=== PATIENT | male | born 1995 | race Hispanic/Latino ===

== ENCOUNTER 2017-07-11 10:28 | Inpatient (IN) | payer OTHER ==
[2017-07-11 11:16] VITALS: BMI 35.9
--- NOTE | 2017-07-11 11:42 | RAD ---
HISTORY: cough COMPARISON: No prior. FINDINGS: LUNGS: The lungs are well inflated. There is patchy airspace disease in the left lung. There is mild pulmonary venous congestion. PLEURA: No significant pleural effusion identified, no pneumothorax apparent. CARDIOVASCULAR: Normal. OSSEOUS STRUCTURES: No significant abnormalities. VISUALIZED UPPER ABDOMEN: Normal. OTHER FINDINGS: None. IMPRESSION: Suspect multifocal pneumonia in the left lung. Follow-up to resolution is advised.
[2017-07-11 11:43] LABS: ARTERIAL BLOOD GAS HCO3 27.9 mmol/L (21-28); ARTERIAL BLOOD GAS O2 SAT 97.8 % (95-98); ARTERIAL BLOOD GAS PCO2 44 mm/Hg (35-45); ARTERIAL BLOOD GAS PH 7.41 (7.35-7.45); ARTERIAL BLOOD GAS TCO2 29.3 mmol.L (22-28)
[2017-07-11 11:45] LABS: BASO # 0.01 K/mm3 (0.0-2.0); GRAN # 18.33 (1.4-6.5); GRAN % 81.2 % (50.0-68.0); HEMOGLOBIN 14.7 g/dL (14.0-18.0); LYMPH # 1.9 (1.2-3.4); LYMPH % 8.5 % (22.0-35.0); MEAN CELL VOLUME 82.3 fl (80.0-105.0); MEAN CORPUSCULAR HEMOGLOBIN 29.2 pg (25.0-35.0); MEAN CORPUSCULAR HGB CONC 35.4 g/dl (31.0-37.0); MEAN PLATELET VOLUME 9.8 fl (7.0-11.0); MONO # 2.3 (0.1-0.6); MONO % 10.3 % (1.0-6.0); RBC 5.04 10^6/uL (3.5-6.1); RED CELL DISTRIBUTION WIDTH 12.6 % (11.5-14.5); WHITE BLOOD COUNT 22.6 10^3/ul (4.5-11.0)
[2017-07-11 11:56] LABS: ALB/GLOB RATIO 1.7 (1.1-1.8); ALBUMIN 4.1 g/dL (3.0-4.8); ALT/SGPT 39 U/L (7-56); AST/SGOT 28 U/L (17-59); BLOOD UREA NITROGEN 15 mg/dL (7-21); CALCIUM 8.8 mg/dL (8.4-10.5); GFR AFRICAN-AMERICAN > 60; GFR NON-AFRICAN AMERICAN > 60; PROTHROMBIN TIME 13.3 SECONDS (9.4-12.5)
[2017-07-11 11:57] LABS: INR 1.15 (0.93-1.08)
[2017-07-11] MEDS: Sodium Chloride 0.9% 1,000 ML IV SCH (11:58)
[2017-07-11] MEDS ORDERED: Piperacill/Tazo 4.5gm in NS 4.5 GM/100 ML BAG IVPB STA (12:01)
[2017-07-11] MEDS ORDERED: Albuterol-Ipratrop 3 mg / 0.5 (3 ml) UD IH STA (12:01)
[2017-07-11] MEDS ORDERED: Vancomycin 1gm in NS 250ml 1 GM/250 ML BAG IVPB STA (12:02)
[2017-07-11 12:03] LABS: ACETAMINOPHEN < 10.0 ug/ml (10.0-20.0); SALICYLATE < 1 mg/dL (2.0-20.0)
[2017-07-11] MEDS: Albuterol-Ipratrop 3 mg / 0.5 (3 ml) UD IH SCH ×2 (12:15→12:36)
[2017-07-11] MEDS ORDERED: Iohexol 350 MG/100 ML VIAL ONE (13:47)
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
[2017-07-11] MEDS ORDERED: Morphine 4 mg/ml ISec IVP PRN (14:17)
[2017-07-11] MEDS ORDERED: Albuterol-Ipratrop 3 mg / 0.5 (3 ml) UD IH PRN (15:07)
--- NOTE | 2017-07-11 15:44 | CT ---
PROCEDURE: CT Chest with contrast HISTORY: hemoptysis COMPARISON: None. TECHNIQUE: Contiguous axial images were obtained through the chest with intravenous contrast enhancement. Sagittal and coronal reconstructions were performed. IV contrast: 100 cc of Omni 350 Radiation dose (DLP): 839 mGy-cm. This CT exam was performed using one or more of the following dose reduction techniques: Automated exposure control, adjustment of the mA and/or kV according to patient size, and/or use of iterative reconstruction technique. FINDINGS: LUNGS: There is a diffuse patchy alveolar infiltrates seen predominantly in the upper lobes bilaterally. There is also involvement of the left lower lobe. The infiltrate does not extend to the periphery of the lungs. Although the finding could represent pneumonia considering the history of hemoptysis this could represent diffuse alveolar hemorrhage. This can be seen in rare conditions such as Beckie's granulomatosis, Churg-Matthew syndrome, Goodpasture's syndrome and microscopic polyangitis. MEDIASTINUM: Unremarkable thoracic aorta. No aneurysm or dissection. Normal sized heart. Main pulmonary artery unremarkable. No vascular congestion. No lymphadenopathy. PLEURA: No pleural fluid. No pneumothorax. BONES: No fracture. No destructive lesion. UPPER ABDOMEN: Grossly unremarkable. OTHER FINDINGS: None. IMPRESSION: Diffuse patchy alveolar infiltrate which does not extend to the periphery of the lungs. Although this could represent pneumonia given the history of hemoptysis this most likely represents diffuse alveolar hemorrhage. This can be seen in rare conditions such as Beckie's granulomatosis, Churg-Matthew syndrome, Goodpasture's syndrome and microscopic polyangitis. The relationship to the history of opioid overdose is uncertain.
[2017-07-11] MEDS ORDERED: Azithromycin 500MG/NS 250ml 500 MG/250 ML BAG IVPB STA (15:47)
--- NOTE | 2017-07-11 16:08 | ED PDOC ---
Arrival/HPI - General Chief Complaint: Substance Abuse Time Seen by Provider: 07/11/17 11:02 Historian: Patient, Family, EMS - History of Present Illness Narrative History of Present Illness (Text): Patient is a 21 yo male presents to the Emergency Department via ambulance for history of "overdose". History is supplemented by ambulance personnel and mother at bedside. As per ambulance crew, patient was found unresponsive and "blue" prior to arrival by mother. They describe that when they reached the individual he had "slow respirations and was unresponsive". They report that he was given "two sprays of intranasal Narcan" and there was immediate improvement in respiratory status and patient "woke up." He was subsequently transported to the Emergency Department. When I examine the patient at bedside, he states that "last night" he "took a xanax" and "used a bag of heroin". He states that he had NOT been sick or ill prior to last night. He reports that he was "moving some things and I must have passed out" and reports that he "woke up around 2 in the morning and I must have vomited some blood because it was in my mouth and I had to clean it off me". He states he "went to bed" and his father "woke me up around 5 in the morning to see if I was going to work." Mother states that she saw patient "around 6" and he was complaining of coughing/spitting up blood, and that she would take him to be evaluated later in the morning. She subsequently states she "found him blue and not responding prior to arrival to the Emergency Department". Patient admits that since he saw his mom at 6 in the morning "I used another bag of heroin". He currently complains of cough and congestion. He denies headache or trauma. He denies abdominal pain. He denies bloody or dark urine or stool. He denies chest pain or pleuritic chest discomfort. He denies suicidal ideation. He states that he "got this batch of heroin from [place]" and "I usually don't get it from there". Time/Duration: Prior to Arrival Past Medical History - Infectious Disease Hx of Infectious Diseases: None - Tetanus Immunization Tetanus Immunization: Up to Date - Past Medical History Past Medical History: No Previous - Cardiac Hx Cardiac Disorders: No - Pulmonary Hx Respiratory Disorders: No - Neurological Hx Neurological Disorder: No - HEENT Hx HEENT Disorder: No - Renal Hx Renal Disorder: No - Endocrine/Metabolic Hx Endocrine Disorders: No - Hematological/Oncological Hx Blood Disorders: No - Integumentary Hx Dermatological Disorder: No - Musculoskeletal/Rheumatological Hx Musculoskeletal Disorders: No - Gastrointestinal Hx Gastrointestinal Disorders: No - Genitourinary/Gynecological Hx Genitourinary Disorders: No - Psychiatric Hx Psychophysiologic Disorder: No Hx Substance Use: Yes - Past Surgical History Past Surgical History: No Previous - Surgical History Hx Tonsillectomy: Yes - Anesthesia Hx Anesthesia: Yes Hx Anesthesia Reactions: No Hx Malignant Hyperthermia: No - Suicidal Assessment Feels Threatened In Home Enviroment: No Family/Social History Family/Social History: Unknown Family HX Smoking Status: Heavy Smoker > 10 Cigarettes Daily Hx Alcohol Use: No Hx Substance Use: Yes Substance used: heroine Hx Substance Use Treatment: No Allergies/Home Meds Allergies/Adverse Reactions: Allergies No Known Allergies Allergy (Verified 07/11/17 13:53) Home Medications: Home Meds Medication Instructions Recorded Confirmed No Known Home Med 07/11/17 07/11/17 Review of Systems - Review of Systems Constitutional: Fatigue Eyes: absent: Vision Changes, Eye Pain ENT: absent: Hearing Changes Respiratory: SOB, Cough, Sputum, Wheezing Cardiovascular: absent: Chest Pain, Palpitations, Edema, Calf Pain Gastrointestinal: Other ("spitting up blood"). absent: Abdominal Pain, Diarrhea , Nausea Genitourinary Male: absent: Dysuria, Hematuria Musculoskeletal: absent: Back Pain Skin: absent: Rash Neurological: absent: Headache, Dizziness, Focal Weakness Endocrine: absent: Polyuria Hemo/Lymphatic: absent: Easy Bleeding Psychiatric: absent: Suicidal Ideation Physical Exam Vital Signs Reviewed: Yes Vital Signs Temp Pulse Resp BP Pulse Ox 07/11/17 14:28 99.1 F 98 H 20 122/78 96 07/11/17 14:24 98.9 F 07/11/17 13:30 90 20 123/62 95 07/11/17 12:57 97 H 18 133/71 96 07/11/17 10:43 99.5 F 97 H 22 129/72 93 L Temperature: Afebrile Blood Pressure: Normal Pulse: Regular Appearance: Positive for: Comfortable Pain Distress: Mild Mental Status: Positive for: Alert and Oriented X 3 - Systems Exam Head: Present: Atraumatic Pupils: Present: Other (dilated, reactive, equal pupils, visual acuity and visual alfaro intact) Extroacular Muscles: Present: EOMI. No: Gaze Palsy, Entrapment Conjunctiva: Present: Injected. No: Icteric Ears: No: Erythema Mouth: Present: Moist Mucous Membranes Pharnyx: Present: Other (dried blood, dark noted around lips, with no tongue or lip lesions noted, no pharyngeal erythema or exudate). No: ERYTHEMA, EXUDATE, Peritonsilar Swelling, Uvular Deviation, Muffled/Hoarse Voice, Strider Nose (Internal): Present: No Active Bleeding. No: Epistaxis Neck: Present: Normal Range of Motion, Trachea Midline. No: Meningeal Signs, MIDLINE TENDERNESS Respiratory/Chest: Present: Rhonchi, Tachypneic. No: Respiratory Distress, Accessory Muscle Use, Retracting Cardiovascular: Present: Regular Rate and Rhythm, Murmurs Abdomen: No: Tenderness, Distention, Peritoneal Signs, Rebound, Guarding Rectal: Present: Other (no gross bleeding or melena). No: Gross Blood Back: No: Midline Tenderness, Pain with Leg Raise Upper Extremity: No: Cyanosis Lower Extremity: Present: NORMAL PULSES, Other (no calf pain or edema). No: Edema, CALF TENDERNESS, Tenderness, Swelling Neurological: Present: Other (no slurred speech, awake, alert and oriented and answering questions, no meningeal signs, no focal motor or sensory deficits, no facial droop) Skin: Present: Other (flushed) Psychiatric: Present: Alert, Normal Insight. No: Suicidal Ideation, Homicidal Ideation, Lethargic Medical Decision Making ED Course and Treatment: Patient was evaluated with mom at bedside. History obtained from patient, mother and prehospital personnel. Patient admits to using heroin "last night" as well as a SECOND time earlier this AM. As per medics, patient had immediate response to Narcan given prior to arrival. Patient states that he had "spit up blood" and he "woke up with blood around me " at 2 am. On current exam, there is dried blood noted in oropharynx although on my initial exam no active hemoptysis although history is concerning for intermittent episodes. On initial exam in ED, his oxygen saturations are 92-94% on 2 liters nasal cannula. Some mild rhonchi are noted in both lung alfaro but patient in ED is not labored or in respiratory distress. Chest xray reading by radiologist was reviewed with patient and mother. I am concerned for multifocal pneumonia, aspiration given hx of overdose of heroin, although differential also includes ARDS, pulmonary edema, pulmonary hemorrhage. We closely monitored patient's respiratory status and neurologic status, reviewed ABG and correlated with his respiratory status in ED. He remains alert, conversive throughout ED stay. He requested to smoke a cigarrete I have advised him he is not able to given high risk of abnormal chest xray and pulmonary disease noted. Due to history of hemoptysis, abnormal chest xray, risk of aspiration, risk of hemorrhage, risk of ARDS given heroin overdose, ICU natural gas technician consulted Dr. Jamari Gonzalez. I reviewed history, abnormal chest xray and current exam with ICU team. I feel patient is at risk for progression of respiratory distress given chest xray findings and will admit to Intensive Care Unit. Family and patient updated with treatment plan. Leukocytosis noted, although afebrile and initial lactate and blood pressure stable. Cultures ordered and broad spectrum antibiotics ordered for risk of pneumonia, although ARDS cannot be excluded. Patient exhibits no distress on nasal cannula with serial exams, although will admit to ICU for close monitoring. Directly communicated with natural gas technician and treatment care handed off to ICU team , including serial exams and consultations. Patient's PMD is Dr. Melgar, Dr. López is covering will accept patient to her service. Care of this patient turned over directly to ICU team at 13:30. Reassessment Condition: Re-examined - Critical Care Critical Care Minutes: 30 minutes - Lab Interpretations Lab Results: 07/11/17 11:20 07/11/17 11:20 Lab Results 07/11/17 11:35: pCO2 44, pO2 72.0 L, HCO3 27.9, ABG pH 7.41, ABG Total CO2 29.3 H, ABG O2 Saturation 97.8, ABG Base Excess 2.7, ABG Potassium 3.8, Glucose 109, Lactate 0.7, FiO2 32.0, Sodium 135.0, Chloride 105.0, Arterial Blood Potassium 3.8 07/11/17 11:20: PT 13.3 H, INR 1.15 H, APTT 28.0 07/11/17 11:20: Alcohol, Quantitative < 10 07/11/17 11:20: Salicylates < 1 L, Acetaminophen < 10.0 L 07/11/17 11:20: Sodium 138, Potassium 4.0, Chloride 101, Carbon Dioxide 28, Anion Gap 13, BUN 15, Creatinine 0.7 L, Est GFR ( Amer) > 60, Est GFR ( Non-Af Amer) > 60, Random Glucose 109, Calcium 8.8, Magnesium 1.9, Total Bilirubin 0.6, AST 28, ALT 39, Alkaline Phosphatase 35 L, Total Creatine Kinase 111, Total Protein 6.4, Albumin 4.1, Globulin 2.4, Albumin/Globulin Ratio 1.7 07/11/17 11:20: WBC 22.6 H, RBC 5.04, Hgb 14.7, Hct 41.5 L, MCV 82.3, MCH 29.2, MCHC 35.4, RDW 12.6, Plt Count 205, MPV 9.8, Gran % 81.2 H, Lymph % (Auto) 8.5 L , [place] % (Auto) 10.3 H, Eos % (Auto) 0.0 L, Baso % (Auto) 0.0, Gran # 18.33 H, Lymph # (Auto) 1.9, [place] # (Auto) 2.3 H, Eos # (Auto) 0.0, Baso # (Auto) 0.01 I have reviewed the lab results: Yes - RAD Interpretation Radiology Orders: 07/11/17 11:08 CHEST PORTABLE [RAD] Stat Shoe Polisher: Radiologist - EKG Interpretation EKG Interpretation (Text): 07/11/17 18:34 EKG at 11:26 normal sinus rhythm with fusion complexes, incomplete right bundle branch block Interpreted by ED Physician: Yes Type: 12 lead EKG - Medication Orders Current Medication Orders: Albuterol/Ipratropium (Duoneb 3 Mg/0.5 Mg (3 Ml) Ud) 3 ml IH [id number] PRN PRN Reason: Shortness of Breath Sodium Chloride (Sodium Chloride 0.9%) 1,000 mls @ 100 mls/hr IV .Q10H [facility] Last Admin: 07/11/17 11:58 Dose: 100 mls/hr eMAR Start Stop Document 07/11/17 11:58 SZA (Rec: 07/11/17 11:58 [id number]) Intravenous Solution Start Date 07/11/17 Start Time 11:58 Ceftriaxone Sodium (Rocephin 1 Gram Ivpb) 1 gm in 100 mls @ 100 mls/hr IVPB DAILY [facility] PRN Reason: Protocol Azithromycin (Zithromax 500mg In Ns) 500 mg in 250 mls @ 167 mls/hr IVPB DAILY [facility] PRN Reason: Protocol Morphine Sulfate (Morphine) 2 mg IVP Q4H PRN PRN Reason: Other Nicotine (Nicoderm Cq) [address] [facility] Last Admin: 07/11/17 15:45 Dose: 1 patch MAR Transdermal Patch Site Document 07/11/17 15:45 [facility] (Rec: 07/11/17 15:46 [facility] [id number]) Transdermal Patch Site Transdermal Patch Site Left Lower Back Pantoprazole Sodium (Protonix Inj) [address] [facility] Last Admin: 07/11/17 14:39 Dose: 40 mg IVP Administration Document 07/11/17 14:39 [facility] (Rec: 07/11/17 14:39 [email or web address] [id number]) Charges for Administration # of IVP Administrations 1 Discontinued Medications Albuterol/Ipratropium (Duoneb 3 Mg/0.5 Mg (3 Ml) Ud) 3 ml IH STAT STA Stop: 07/11/17 12:02 Last Admin: 07/11/17 12:35 Dose: 3 ml Albuterol/Ipratropium (Duoneb 3 Mg/0.5 Mg (3 Ml) Ud) 3 ml IH Q15M [facility] Stop: 07/11/17 12:46 Last Admin: 07/11/17 12:36 Dose: 3 ml Piperacillin Sod/Tazobactam Sod (Zosyn 4.5 Gm In Ns 100ml) 4.5 gm in 100 mls @ 200 mls/hr IVPB STAT STA PRN Reason: Protocol Stop: 07/11/17 12:30 Last Admin: 07/11/17 12:34 Dose: 200 mls/hr eMAR Start Stop Document 07/11/17 12:34 [facility] (Rec: 07/11/17 12:35 [id number] [id number]) Intravenous Solution Start Date 07/11/17 Start Time 12:35 End Date 07/11/17 End time 13:05 Total Infusion Time 30 Vancomycin HCl (Vancomycin 1gm) 1 gm in 250 mls @ 167 mls/hr IVPB STAT STA PRN Reason: Protocol Stop: 07/11/17 13:31 Last Admin: 07/11/17 13:15 Dose: 167 mls/hr eMAR Start Stop Document 07/11/17 13:15 [facility]ZA (Rec: 07/11/17 13:15 [id number]) Intravenous Solution Start Date 07/11/17 Start Time 13:15 End Date 07/11/17 End time 14:45 Total Infusion Time 90 Azithromycin (Zithromax 500mg In Ns) 500 mg in 250 mls @ 167 mls/hr IVPB STAT STA PRN Reason: Protocol Stop: 07/11/17 17:16 Last Admin: 07/11/17 16:16 Dose: 167 mls/hr eMAR Start Stop Document 07/11/17 16:16 [facility] (Rec: 07/11/17 16:17 [facility] [id number]) Intravenous Solution Start Date 07/11/17 Start Time 16:16 End Date 07/11/17 End time 18:16 Total Infusion Time 120 Disposition/Present on Arrival - Present on Arrival Any Indicators Present on Arrival: No History of DVT/PE: No History of Uncontrolled Diabetes: No Urinary Catheter: No History of Decub. Ulcer: No History Surgical Site Infection Following: None - Disposition Have Diagnosis and Disposition been Completed?: Yes Diagnosis: Heroin overdose, Hemoptysis, Leukocytosis, Pneumonia, Abnormal chest xray Disposition: HOSPITALIZED Disposition Time: 13:30 Patient Plan: Admission, ICU Condition: CRITICAL
--- NOTE | 2017-07-11 18:34 | CARD ---
APPROVED REPORT EKG Measurement Heart [id number] <Conclusion> Sinus rhythm with fusion complexes Incomplete right bundle branch block Borderline ECG
[2017-07-11] MEDS ORDERED: Pneumococcal 23-Valent Vaccine IM ONE (18:39)
[2017-07-11 19:52] LABS: HEMOGLOBIN 14.2 g/dL (14.0-18.0)
[2017-07-12] MEDS: Sodium Chloride 0.9% 1,000 ML IV SCH ×2 (00:31→11:07)
[2017-07-12 01:50] LABS: BARBITURATES, UR NEGATIVE (NEGATIVE); BENZODIAZEPINES, UR POSITIVE (NEGATIVE); OPIATES, UR POSITIVE (NEGATIVE); PHENCYCLIDINE, UR NEGATIVE (NEGATIVE)
[2017-07-12] MEDS ORDERED: DiphenhydrAMINE 50 mg/ml Inj IVP ONE ×2 (01:57→02:16)
[2017-07-12] MEDS ORDERED: DiphenhydrAMINE 50 mg/ml Inj ONE (02:00)
--- NOTE | 2017-07-12 04:06 | CP.PCM.PN ---
Subjective - Date & Time of Evaluation Date of Evaluation: 07/12/17 Time of Evaluation: 04:02 - Subjective Subjective: Seen at bedside. Because he was restless. Asked for medication for withdrawal. Has no other complaints. Medical record was reviewed. This 21 year old male was admitted with heroine and xanax overdose. Has history of drug abuse, obesity, gastritis, endoscopy 2 years ago. Objective - Vital Signs/Intake and Output Vital Signs (last 24 hours): Temp Pulse Resp BP Pulse Ox 98.9 F 100 H 27 H 125/104 H 98 07/12/17 00:45 07/12/17 02:30 07/12/17 01:20 07/12/17 02:30 07/12/17 01:20 Intake and Output: 07/11/17 07/12/17 18:59 06:59 Intake Total 400 Balance 400 - Medications Medications: Current Medications Albuterol/Ipratropium (Duoneb 3 Mg/0.5 Mg (3 Ml) Ud) 3 ml IH [id number] PRN PRN Reason: Shortness of Breath Sodium Chloride (Sodium Chloride 0.9%) 1,000 mls @ 100 mls/hr IV .Q10H [facility] Last Admin: 07/12/17 00:31 Dose: 100 mls/hr Ceftriaxone Sodium (Rocephin 1 Gram Ivpb) 1 gm in 100 mls @ 100 mls/hr IVPB DAILY [facility] PRN Reason: Protocol Azithromycin (Zithromax 500mg In Ns) 500 mg in 250 mls @ 167 mls/hr IVPB DAILY [facility] PRN Reason: Protocol Morphine Sulfate (Morphine) 2 mg IVP Q4H PRN PRN Reason: Other Nicotine (Nicoderm Cq) 1 patch TD DAILY [facility] Last Admin: 07/11/17 15:45 Dose: 1 patch Pantoprazole Sodium (Protonix Inj) 40 mg IVP Q12 [facility] Last Admin: 07/11/17 21:00 Dose: 40 mg - Labs Labs: 07/11/17 19:45 PT 13.3 SECONDS (9.4-12.5) H 07/11/17 11:20 INR 1.15 (0.93-1.08) H 07/11/17 11:20 APTT 28.0 Seconds (25.1-36.5) 07/11/17 11:20 - Constitutional Appears: Well, No Acute Distress - Head Exam Head Exam: ATRAUMATIC, NORMAL INSPECTION, NORMOCEPHALIC Additional comments: Restless. - Eye Exam Eye Exam: Normal appearance - ENT Exam ENT Exam: Normal External Ear Exam - Neck Exam Neck Exam: Normal Inspection - Respiratory Exam Respiratory Exam: NORMAL BREATHING PATTERN - Cardiovascular Exam Cardiovascular Exam: absent: JVD - GI/Abdominal Exam GI & Abdominal Exam: absent: Distended - Rectal Exam Rectal Exam: Deferred - Exam Additional comments: Deferred. - Extremities Exam Extremities Exam: Normal Inspection - Back Exam Back Exam: NORMAL INSPECTION - Neurological Exam Neurological Exam: Altered - Psychiatric Exam Psychiatric exam: Agitated - Skin Skin Exam: Normal Color Assessment and Plan - Assessment and Plan (Free Text) Assessment: Restlessness. Drug overdose. Obesity. Gastritis. Leukocytosis. Plan: Clonidine 0.3 mg PO x 1. Benadryl 50 mg PO x 1. Vistaril 100 mg PO x1.
[2017-07-12 07:11] LABS: EOS % 0.1 % (1.5-5.0); GRAN # 10.74 (1.4-6.5); GRAN % 89.4 % (50.0-68.0); HEMOGLOBIN 14.4 g/dL (14.0-18.0); LYMPH # 1.1 (1.2-3.4); LYMPH % 9.2 % (22.0-35.0); MEAN CELL VOLUME 82.2 fl (80.0-105.0); MEAN CORPUSCULAR HEMOGLOBIN 28.8 pg (25.0-35.0); MEAN PLATELET VOLUME 10.6 fl (7.0-11.0); MONO # 0.2 (0.1-0.6); MONO % 1.3 % (1.0-6.0); RED CELL DISTRIBUTION WIDTH 12.5 % (11.5-14.5)
[2017-07-12 07:31] LABS: ALB/GLOB RATIO 1.6 (1.1-1.8); ALBUMIN 4.1 g/dL (3.0-4.8); ALT/SGPT 34 U/L (7-56); AST/SGOT 21 U/L (17-59); BLOOD UREA NITROGEN 13 mg/dL (7-21); CALCIUM 9.5 mg/dL (8.4-10.5); GFR AFRICAN-AMERICAN > 60; GFR NON-AFRICAN AMERICAN > 60
[2017-07-12 07:34] LABS: B-TYPE NATRIURETIC PEPTIDE 342 pg/mL (0-450)
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
[2017-07-12] MEDS ORDERED: Potassium & Sodium Phosphate PO STA (08:35)
[2017-07-12] MEDS ORDERED: Azithromycin 500MG/NS 250ml 500 MG/250 ML BAG IVPB SCH (10:00)
[2017-07-12] MEDS ORDERED: cefTRIAXone 1 gm 1 GM/100 ML BAG IVPB SCH (10:00)
--- NOTE | 2017-07-12 10:46 | PN ---
DATE: 07/12/2017 SUBJECTIVE: The patient is seen and examined at bedside. He appears to be comfortable. He had only a few streaks of old blood in his sputum overnight, just 2 times. He is not coughing up large quantity of bloody anymore. CAT scan of the chest revealed ground-glass nodules and some opacities, which may represent fluid in the alveoli, whether it is blood or not hard to say. There is no cavitary lesion or significant bronchiectasis identified. The ground-glass opacities and nodules are bilateral with right slightly more than left. The patient's breathing substantially improved subjectively. He however, complaining on increased jittery feeling and feeling cold. PHYSICAL EXAMINATION: VITAL SIGNS: Blood pressure 130/74, respiratory rate 20, oxygen saturation 91% on room air, heart rate 97. GENERAL: The patient is comfortable. ENT: Head and neck atraumatic. LUNGS: Clear to auscultation bilaterally. HEART: Regular rate and rhythm. S1, S2 normal. ABDOMEN: Soft, nontender, nondistended. MUSCULOSKELETAL: No C/C/E. NEURO: The patient moves all extremities spontaneously. SKIN: Moist. PSYCH: The patient is alert, awake, but somnolent. Of note, the patient received 20 mg of methadone x1 to prevent withdrawal. LABORATORY DATA: WBC 12, down from 22.6; hemoglobin 14.4; platelet count 195. Sodium 142, potassium 3.6, chloride 108, carbon dioxide 21, BUN 13, creatinine 0.6, glucose 120, AST 21, ALT 34. The patient has low eosinophil count. MEDICATIONS: DuoNeb p.r.n., Benadryl, methadone x1, morphine p.r.n., nicotine patch, Protonix, Zosyn and azithromycin. ProBNP 342. CAT scan of the chest revealed diffuse patchy alveolar infiltrate, which does not extent to the periphery of the lung. Also, this could represent pneumonia given the history of hemoptysis. This most likely represents diffuse alveolar hemorrhage. Chest x-ray revealed bilateral reticular nodular opacities, left more than right. ASSESSMENT AND PLAN: This is a 21-year-old gentleman, who presented with hemoptysis after using heroin (it is unclear whether he was snorting or using it IV) and was admitted to Intensive Care Unit for concern for his ability to protect airways and borderline hypoxemia. CAT scan showed bilateral ground-glass nodules and opacities, which may or may not represent diffuse alveolar hemorrhage, as acute hypersensitivity pneumonitis may present with similar radiographic picture and hemoptysis could have represented simply aspirated epistaxis. The patient received 1 dose of Solu-Medrol with almost complete resolution of the hemoptysis afterward. The patient's respiratory status substantially improved. It appears that the patient starts to show some symptoms of withdrawal from opiates. Methadone 20 mg p.o. was given and the patient reports that he is feeling better. He hemodynamically appears to be better. I doubt that hemoptysis represents signs of autoimmune vasculitis as patient does not have renal insufficiency, sinusitis , CHF, encephalopathy or skin rash. We will, however, order echocardiogram to elaborate on that. I will continue to target euvolemia, euglycemia, normothermia and oxygen saturation more than 90%. We will continue with deep venous thrombosis and gastrointestinal prophylaxis. ccm time 40 min Rm Mills MD ADÁN
--- NOTE | 2017-07-12 10:55 | CP.PCM.CON ---
History of Present Illness - History of Present Illness History of Present Illness: 21 year old male with PMH of heroin abuse (sniffs), history of gastritis, obesity with BMI 36 came in to [facility] complaining of cough and vomiting up blood since yesterday. Apparently the patient had been going to rehab for more than a year now but went back to using heroin after he broke up with his girlfriend. He denies IV drug use. He had shortness of breath when he came in, denies fever or chills, no headache or dizziness, no sore throat, no rhinorrhea, no abdominal pain, no diarrhea, no dysuria. He continues to have blood in his phlegm. Before he went to the rehab center, he apparently had a PPD done which was negative according to the patient. CXR and CT chest was done which is suggestive of diffuse alveolar hemorrhage. The patient was also found to have leukocytosis and Infectious diseases consult is requested to further evaluate and manage. Review of Systems - Review of Systems All systems: reviewed and no additional remarkable complaints except (as per HPI ) Past Patient History - Infectious Disease Hx of Infectious Diseases: None - Tetanus Immunizations Tetanus Immunization: Up to Date - Past Social History Smoking Status: Heavy Smoker > 10 Cigarettes Daily - CARDIAC Hx Cardiac Disorders: No - PULMONARY Hx Respiratory Disorders: No - NEUROLOGICAL Hx Neurological Disorder: No - HEENT Hx HEENT Problems: No - RENAL Hx Chronic Kidney Disease: No - ENDOCRINE/METABOLIC Hx Endocrine Disorders: No - HEMATOLOGICAL/ONCOLOGICAL Hx Blood Disorders: No - INTEGUMENTARY Hx Dermatological Problems: No - MUSCULOSKELETAL/RHEUMATOLOGICAL Hx Musculoskeletal Disorders: No - GASTROINTESTINAL Hx Gastrointestinal Disorders: No - GENITOURINARY/GYNECOLOGICAL Hx Genitourinary Disorders: No - PSYCHIATRIC Hx Psychophysiologic Disorder: No Hx Substance Use: Yes - SURGICAL HISTORY Hx Tonsillectomy: Yes - ANESTHESIA Hx Anesthesia: Yes Hx Anesthesia Reactions: No Hx Malignant Hyperthermia: No Meds Allergies/Adverse Reactions: Allergies Allergy/AdvReac Type Severity Reaction Status Date / Time No Known Allergies Allergy Verified 07/11/17 13:53 - Medications Medications: Current Medications Albuterol/Ipratropium (Duoneb 3 Mg/0.5 Mg (3 Ml) Ud) 3 ml IH [id number] PRN PRN Reason: Shortness of Breath Sodium Chloride (Sodium Chloride 0.9%) 1,000 mls @ 100 mls/hr IV .Q10H [facility] Last Admin: 07/11/17 11:58 Dose: 100 mls/hr Ceftriaxone Sodium (Rocephin 1 Gram Ivpb) 1 gm in 100 mls @ 100 mls/hr IVPB DAILY [facility] PRN Reason: Protocol Azithromycin (Zithromax 500mg In Ns) 500 mg in 250 mls @ 167 mls/hr IVPB DAILY [facility] PRN Reason: Protocol Azithromycin (Zithromax 500mg In Ns) 500 mg in 250 mls @ 167 mls/hr IVPB STAT [facility] PRN Reason: Protocol Stop: 07/11/17 17:16 Last Admin: 07/11/17 16:16 Dose: 167 mls/hr Morphine Sulfate (Morphine) 2 mg IVP Q4H PRN PRN Reason: Other Nicotine (Nicoderm Cq) 1 patch TD DAILY [facility] Last Admin: 07/11/17 15:45 Dose: 1 patch Pantoprazole Sodium (Protonix Inj) 40 mg IVP Q12 [facility] Last Admin: 07/11/17 14:39 Dose: 40 mg Physical Exam - Constitutional Appears: Other (ill-appearing) - Head Exam Head Exam: NORMAL INSPECTION - Neck Exam Neck exam: Negative for: Meningismus - Respiratory Exam Respiratory Exam: Rales (scattered, diffuse) - Cardiovascular Exam Cardiovascular Exam: +S1, +S2 - GI/Abdominal Exam GI & Abdominal Exam: Soft. absent: Tenderness Results - Vital Signs Recent Vital Signs: Last Vital Signs Temp 99.1 F 07/11/17 14:28 Pulse 98 H 07/11/17 14:28 Resp 20 07/11/17 14:28 BP 122/78 07/11/17 14:28 Pulse Ox 96 07/11/17 14:28 - Labs Result Diagrams: 07/12/17 06:30 07/12/17 06:30 Labs: Laboratory Results - last 24 hr 07/11/17 07/11/17 14:15 14:38 Blood Type A POSITIVE Blood Type Confirm A POSITIVE Antibody Screen Negative BBK History Checked No verified bt Assessment & Plan - Assessment and Plan (Free Text) Plan: Assessment Systemic Inflammatory response syndrome with hemoptysis and hematemesis, consider due to diffuse alveolar hemorrhage, R/O due to heroin use, R/O sepsis from aspiration pneumonia heroin abuse (sniffs) history of gastritis obesity with BMI 36 Plan Started the patient on Zosyn and Zithromax pending blood, sputum cx will check urinalysis will check sputum AFB and Quantiferon TB test will check HIV test, VIVIANE, ANCA follow up Pulmonary recommendations
[2017-07-12] MEDS: Piperacillin/Tazobact 3.375 gm 100 ML IVPB SCH ×3 (11:05→18:02)
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
[2017-07-12 11:14] LABS: HEMOGLOBIN 14.2 g/dL (14.0-18.0)
[2017-07-12] MEDS ORDERED: MethylPREDNISolone 40 mg Vial IVP SCH (14:00)
[2017-07-12 19:36] LABS: HEMOGLOBIN 14.5 g/dL (14.0-18.0)
[2017-07-12] MEDS: MethylPREDNISolone 40 mg Vial IVP SCH (21:12)
--- NOTE | 2017-07-12 23:51 | PN ---
DATE: 07/12/2017 SUBJECTIVE: The patient is a 21-year-old, seen and examined. Fully awake, alert, oriented, communicative. Eating and tolerating. No more hemoptysis. No hematemesis. OBJECTIVE: VITAL SIGNS: Patient is afebrile, pulse 91, respirations 22, blood pressure 88/37. LUNGS: Bilateral good airflow. No rhonchi or crackle. HEART: S1, S2 audible. NEUROLOGICAL: He is awake, alert, oriented, communicative. LABORATORY EXAM: Hemoglobin 14, hematocrit 40. Chemistry: Sodium 142, potassium 3.6, chloride 108, CO2 of 21, BUN 13, creatinine 0.6, blood sugar of 120. His urine is positive for opiates and HIV test is negative. ASSESSMENT: 1. Status post heroin overdose. 2. Multilobar pneumonia. 3. Hemoptysis probably secondary to pneumonia. 4. Gastritis. PLAN: Patient can be transferred to Med/Surgery. He can ambulate. We will continue him on nebulizer treatment. He is currently on antibiotics. We will follow up his H and H. Continue him on doxycycline. This patient is eating and tolerating. We will discontinue his IV fluid. His wheezing has improved. I will cut down his steroid to every 12 hours 40 mg. Trung López MD
[2017-07-13] MEDS: Piperacillin/Tazobact 3.375 gm 100 ML IVPB SCH ×5 (00:26→18:36)
--- NOTE | 2017-07-13 02:22 | CON ---
DATE: 07/12/2017 PULMONARY CRITICAL CARE CONSULTATION REFERRING PHYSICIAN: Trung López MD. REASON FOR CONSULT: Bilateral pulmonary infiltrate, hemoptysis, status post benzodiazepine use and also sniffing of heroin. HISTORY OF PRESENT ILLNESS: This is a 21-year-old gentleman, who has known history of substance abuse. From the last couple of weeks, had been doing 15 to 20 bags of heroin. Recently, got his new shipment from [place], [place]. According to the patient, he was driving when he sniffed the first bag, did not feel well, was very sleepy, but able to made it to the home and overnight, he was lethargic, seen him with some hemoptysis and vomiting and he end up repeating his second dose bag of heroin when found unresponsive and the family brought in to emergency room. Has an x-ray done, which shows diffuse bilateral pulmonary infiltrates, responding well to Narcan. Presently, in the Intensive Care Unit. Overnight, a septic workup done, antibiotics were started. Also, steroids were given. He was given Nicoderm patch and also methadone was given this morning. Presently, he is sleepy, arousable, follows simple command. Understands his mistake, what he has done, but claiming he gets withdrawals. Still having some cough and old blood coming out. No nausea. No abdominal pain. No dysuria. No leg pain. No leg swelling. PAST MEDICAL HISTORY: Substance abuse. No cardiopulmonary disease. SOCIAL HISTORY: He is a trash truck driver. Also, smokes, alcohol, substance abuse. FAMILY HISTORY: No significant cardiopulmonary disease reported. ALLERGIES: NONE KNOWN. MEDICATIONS: He is on albuterol/Atrovent nebulizer every 6 hours p.r.n., morphine 2 mg every 4 hours p.r.n., Nicoderm patch daily, Protonix 40 mg every 12 hours, IV fluid normal saline 100 mL/hour, Solu-Medrol 40 mg every 8 hours, Zithromax 500 mg daily, Zosyn 3.375 g every 6 hours. REVIEW OF SYSTEMS: No headache. No rhinitis. Not sure if he had an epistaxis or not. He is coughing blood-tinged sputum. Did have a vomit after using heroin. Presently, no chest pain. No nausea. No vomiting. No diarrhea. No leg pain, no leg swelling. PHYSICAL EXAMINATION: GENERAL: In no acute distress. VITAL SIGNS: Temperature is 98, heart rate is 89, respiratory rate is 18, blood pressure is 130/74, pulse ox 97% on nasal cannula. HEENT: Moist mucous membrane. Crowded airway. NECK: Supple. No JVD. LUNGS: Have a scattered rhonchi. HEART: S1 and S2. ABDOMEN: Soft, nontender. No organomegaly. EXTREMITIES: There is no edema. NEUROLOGICAL: Awake and alert. Follows simple command. LABORATORY DATA: Shows hemoglobin 14.4, hematocrit 41.1, WBC 12, platelet is 195. Sodium 142, potassium 3.6, chloride 108, bicarbonate 21, BUN 13, creatinine 0.6, glucose 120, calcium 9.5, phosphorus 2.1, magnesium 1.9. AST 21, ALT 34, alk phos is 42, albumin is 4.1, procalcitonin is 0.59. Toxicology: Opiates are positive. Benzodiazepines are positive. HIV-1 and 2 are nonreactive. Microbiology: Blood culture is negative. CAT scan of the chest done yesterday shows diffuse patchy alveolar infiltrate, most centrally located. IMPRESSION AND PLAN: Heroin and benzodiazepine use, also a smoker, pulmonary edema secondary to high dose of heroin sniffing with hemoptysis, can also have epistaxis with postnasal drip leading to aspiration and causing cough and hemoptysis. I do not see any chronic disease at present time. We will suggest discontinuing isolation and discontinuing acid-fast bacillus sputum collection. I agree with antibiotics. I am not sure if the heroin, if it was cut with something which could be infected particles, so continue antibiotics, continue steroids. Similar reason could be foreign body reaction causing this pulmonary infiltrate. Clinically, my suspicion is it slowly itself is going to better. Continue methadone. Continue supplement oxygen. Continue bronchodilator, antibiotics, and steroid. Follow up x-ray in the morning. Continue Nicoderm patch. May continue to use methadone for withdrawals. Further plans in the morning. Thank you and we will follow with you. Keyana Villalpando MD
--- NOTE | 2017-07-13 03:24 | CON ---
DATE: HISTORY OF PRESENT ILLNESS: In short, the patient is a 21-year-old male, long and debilitating history of opioid use disorder. The patient had multiple rehabs in the past. The patient stayed sober for the past year or so, but relapsed on heroin for the past 2 weeks after the patient split up with his girlfriend last month. The patient reported that for the past 2 weeks, he relapsed on heroin, was snorting about 3 bags a day. Denied IV use. The patient also reported that here started to use benzodiazepines. The patient was admitted on the medical site, status post unintentional overdose on opioids and hemoptysis. Psych consult was called for evaluation of opioid withdrawals and possible depression. The patient was seen and examined today in the ICU unit. The patient presented to be alert, oriented. The patient seems to be very honest, was giving true story. The patient denied that he was intentionally overdosed on drugs, but the patient reported that he bought drugs not from the regular dealer, but from the person from the [place]. The patient realized that drugs more on the way coming home. The patient reported that combination of heroin plus benzodiazepines gave him symptoms that the patient unintentionally overdosed and passed out and vomited blood. The patient adamantly denied suicidal attempt. The patient reported that he has history of depression and was depressed but not in a way that he wanted to kill himself. The patient reported that he is willing to go to AA meeting, does not want to go to inpatient rehab. The patient has reported history of ADHD, but does not want to be on any medications. The patient does not want to stay in the Psychiatric Inpatient Unit, but the patient is willing to have outpatient referrals. The patient reported that he is taking Vistaril for restless legs syndrome, reported tolerated that medication well. Vital signs reviewed. Pulse is 90, respirations 20, oxygen saturation is 95. Medications reviewed. The patient is on DuoNeb, azithromycin, Solu-Medrol, morphine, Nicoderm, Protonix, Zosyn and sodium chloride. Labs reviewed. WBC cells trending down, 12 today. Chemistry reviewed. Toxicology reviewed. Benzodiazepines positive for opioids positive. MENTAL STATUS EXAMINATION: The patient appears to be alert and oriented, seems to be a good reliable historian. Intermittent eye contact. Mood described and depressed. Affect was constricted. Mood congruent. Thought process coherent and goal directed. Thought content, the patient denied visual, auditory or tactile hallucinations. Denied paranoid ideation. The patient denied thoughts of harming himself or others. Denied intents or plan. Insight and judgment seems to be improving. Impulses are well controlled. IMPRESSION: Status post unintentional overdose on opioids, rule out adjustment disorder. The patient most recently broke up with his girlfriend. PLAN: Continue current management. Continue current medications. Methadone could be given 40-45 mg daily with a plan to taper it down by 5 mg in order to avoid any withdrawal symptoms. Vistaril was resumed for restless legs syndrome. Trazodone was started at the nighttime for possible insomnia. Meanwhile, this radio news writer will sign off because the patient does not want to have any psychiatric help. The patient needs to be followed up with AA meeting, NA meeting and probably [facility] program of his choice. The patient not in any imminent danger to self or others. Thank you very much for letting me participate in the care of your patient. Teena Chauhan MD
[2017-07-13 06:28] LABS: GRAN # 17.82 (1.4-6.5); HEMOGLOBIN 14.7 g/dL (14.0-18.0); LYMPH % 9.3 % (22.0-35.0); MEAN CELL VOLUME 82.3 fl (80.0-105.0); MEAN CORPUSCULAR HEMOGLOBIN 28.9 pg (25.0-35.0); MEAN CORPUSCULAR HGB CONC 35.2 g/dl (31.0-37.0); MEAN PLATELET VOLUME 10.8 fl (7.0-11.0); MONO # 1.7 (0.1-0.6); MONO % 7.7 % (1.0-6.0); RBC 5.08 10^6/uL (3.5-6.1); RED CELL DISTRIBUTION WIDTH 12.7 % (11.5-14.5); WHITE BLOOD COUNT 21.5 10^3/ul (4.5-11.0)
[2017-07-13 07:45] LABS: ALB/GLOB RATIO 1.6 (1.1-1.8); ALBUMIN 4.2 g/dL (3.0-4.8); ALT/SGPT 32 U/L (7-56); AST/SGOT 20 U/L (17-59); BLOOD UREA NITROGEN 16 mg/dL (7-21); CALCIUM 9.5 mg/dL (8.4-10.5); GFR AFRICAN-AMERICAN > 60; GFR NON-AFRICAN AMERICAN > 60
[2017-07-13] MEDS: MethylPREDNISolone 40 mg Vial IVP SCH ×2 (09:05→23:00)
[2017-07-13 11:24] LABS: HEMOGLOBIN 14.9 g/dL (14.0-18.0)
--- NOTE | 2017-07-13 14:06 | PN ---
DATE: 07/13/2017 SUBJECTIVE: The patient is 21 years old, started to have feel a little shaky, was nauseous. The patient said he need to be on methadone on regular basis. We will reach out to the psychiatrist; however, he was given Zofran and 20 mg of methadone stat. PHYSICAL EXAMINATION: GENERAL: On examination, otherwise he is awake and alert, able to communicate. VITAL SIGNS: He is afebrile, pulse 58, respirations 29, blood pressure 150/80. LUNGS: Bilateral good airflow. No rhonchi or crackle. HEART: S1 and S2 audible. ABDOMEN: Soft. Nontender. No rebound. No guarding. NEUROLOGIC: The patient is awake and alert, able to communicate. LABORATORY EXAM: WBC is 21.5, hemoglobin 14, hematocrit 41, platelet of 258. Chemistry: Sodium 147, potassium 3.9, chloride 112, CO2 of 24, BUN 16, creatinine 0.7, blood sugar of 116. Urine positive for opiates. HIV test is negative. ASSESSMENT AND PLAN: 1. Status post opiate overdose. 2. Probably aspiration pneumonia. 3. Hemoptysis secondary to pneumonia. 4. Opiate withdrawal. Currently, the patient is on doxycycline, methylprednisolone and Zosyn. We will continue that. Continue nebulizer treatment. Out of bed to chair. Encourage ambulation. We will follow up this patient in the a.m. Trung López MD
--- NOTE | 2017-07-13 14:45 | PN ---
DATE: 07/13/2017 SUBJECTIVE: The patient is in ICU, comfortable. He is requesting his methadone. He denies any nausea or vomiting. He continues to cough up bloody phlegm. PHYSICAL EXAMINATION: VITAL SIGNS: Reveal blood pressure 172/83. He is afebrile. Heart rate of 88. HEENT: Reveal sclerae to be white. Conjunctivae pink. NECK: Supple. CHEST: Reveals scattered rhonchi. HEART: Reveals a regular rate and rhythm. ABDOMEN: Soft, nontender. EXTREMITIES: Show no edema. LABORATORY DATA: Reveal white blood cell count 21.5, hemoglobin 14.7. AST, ALT, alk phos all normal. HIV is nonreactive. Sputum for AFB is negative. IMPRESSION: A 21-year-old heroin user with longstanding history of heroin abuse with hemoptysis secondary to either heroin -induced pulmonary edema or aspiration pneumonia. He did have evidence of opiate withdrawal yesterday, but appears improved today. There was a history of questionable hematemesis, but the patient has not had any nausea, vomiting, or hematemesis while in the hospital. I suspect that what was reported as hematemesis was hemoptysis, his hemoglobin is stable. There is no evidence of gastrointestinal bleeding. RECOMMENDATIONS: 1. Continue IV antibiotics for possible aspiration pneumonia. 2. Continue treatment for possible opioid-induced pulmonary edema. 3. Consider psych evaluation for opiate dependence. Juan José Garg MD
--- NOTE | 2017-07-13 16:40 | PN ---
DATE: 07/13/2017 LOCATION: Patient is in the ICU 128, bed 1. SUBJECTIVE: The patient seen in bed. No fevers, no chills. Minimal cough. PHYSICAL EXAMINATION: VITAL SIGNS: Temperature is 98, blood pressure is 170/80, respiratory rate of 25, heart rate of 65. HEENT: Unremarkable. NECK: Supple. LUNGS: Decreased breath sounds. HEART: Normal S1, S2. ABDOMEN: Soft, nontender. LABORATORY EXAMINATION: Reveals a white count of 21,000, hemoglobin of 14, platelets of 248. Chemistries reveal a BUN of 16, creatinine of 0.7. Procalcitonin is 0.59. Toxicology is noted. Serology: HIV is negative. Microbiology reveals gram-negative yves in the sputum. The blood cultures are negative. AFB smears are negative. Dr. López's note is reviewed from yesterday. and Dr. Villalpando's consultation is reviewed from yesterday. ASSESSMENT AND PLAN: A 21-year-old male with history of heroin abuse, he sniffs it, with gastritis and obesity with body mass of index of 36, admitted with coughing and hemoptysis with systemic inflammatory response syndrome with diffuse alveolar hemorrhage. I strongly do not suspect tuberculosis with a negative smear in a young man who was born in [facility] with no travel history of exposure to tuberculosis. We will discontinue the isolation and currently on doxycycline and the Zosyn. The patient is on steroids with a gram-negative yves in the sputum. We will check on the identification of gram-negative yves and the blood cultures are reported to be negative. The patient's CAT scan of the chest is reviewed from the 07/11. We will follow closely with you. Juwan Mcdonnell MD
[2017-07-13] MEDS: Albuterol-Ipratrop 3 mg / 0.5 (3 ml) UD IH SCH (19:42)
--- NOTE | 2017-07-13 20:34 | CARD ---
APPROVED REPORT EXAM: Two-dimensional and M-mode echocardiogram with Doppler and color Doppler. INDICATION Congestive Heart Failure 2D DIMENSIONS Left Atrium (2D)4.4 (1.6-4.0cm)IVSd0.9 (0.7-1.1cm) LVDd5.2 (3.9-5.9cm)PWd1.0 (0.7-1.1cm) LVDs3.2 (2.5-4.0cm)FS (%) 38.2 % LVEF (%)68.0 (>50%) M-Mode DIMENSIONS Aortic Root3.80 (2.2-3.7cm)Aortic Cusp Exc.2.20 (1.5-2.0cm) Aortic Valve AoV Peak Ghrbxftg141.0cm/[place] Peak GR.9mmHg Mitral Valve MV E Vcyolzcj30.4cm/sMV A Atjhsmlc38.3cm/sE/A ratio1.5 TDI E/Lateral E'0.0E/Medial E'0.0 Pulmonary Valve PV Peak Ocslxjqn45.0cm/sPV Peak Grad.2mmHg Tricuspid Valve TR Peak Dklvroll825qf/sRAP [id number] Peak Gr.32mmHg WPMV69msXf LEFT VENTRICLE The left ventricle is normal size. There is normal left ventricular wall thickness. The left ventricular function is normal. The left ventricular ejection fraction is within the normal range. There is normal LV segmental wall motion. The left ventricular diastolic function is normal. RIGHT VENTRICLE The right ventricle is normal size. There is normal right ventricular wall thickness. The right ventricular systolic function is normal. ATRIA The left atrium is mildly dilated. The right atrium size is normal. AORTIC VALVE The aortic valve is probably bicuspid. No aortic regurgitation is present. There is no aortic valvular stenosis. MITRAL VALVE The mitral valve is normal in structure. Mitral regurgitation is trace. There is no mitral valve stenosis. TRICUSPID VALVE There is mild pulmonary hypertension. GREAT VESSELS The aortic root is mildly enlarged. PERICARDIAL EFFUSION There is no pericardial effusion. <Conclusion> The left ventricle is normal size. There is normal left ventricular wall thickness. The left ventricular function is normal. The left ventricular ejection fraction is within the normal range. There is normal LV segmental wall motion. The left ventricular diastolic function is normal. There is mild pulmonary hypertension. The aortic root is mildly enlarged. The aortic valve is probably bicuspid.
[2017-07-14 00:56] LABS: TB ANTIGEN MINUS NIL <0.00 IU/mL
[2017-07-14] MEDS: Albuterol-Ipratrop 3 mg / 0.5 (3 ml) UD IH SCH ×3 (03:07→13:13)
--- NOTE | 2017-07-14 03:42 | PN ---
DATE: 07/13/2017 PULMONARY PROGRESS NOTE REFERRING PHYSICIAN: Trung López MD SUBJECTIVE: He is lying in the bed, head at 45 degrees. Night was unremarkable. Still has some cough. He has blood-tinged sputum production, but no nausea, no vomiting, no diarrhea, no leg pain, no leg swelling. OBJECTIVE: GENERAL: In no acute distress. VITAL SIGNS: Temperature is 98, heart rate is 78, respiratory rate is 18, blood pressure is 132/66, pulse ox 100% on nasal cannula. HEENT: Moist mucous membrane. Crowded airway. NECK: Supple. No JVD. LUNGS: Have fair airflow with no rhonchi. HEART: S1 and S2. ABDOMEN: Soft and nontender. No organomegaly. EXTREMITIES: There is no edema. NEUROLOGICAL: Awake and alert. Follows simple command. MEDICATIONS: He is on trazodone 50 mg at bedtime p.r.n., doxycycline 100 mg twice a day, DuoNeb every 6 hours, nicotine patch daily, Protonix 40 mg twice a day, Solu-Medrol 40 mg twice a day, Vistaril 50 mg three times a day, Zofran p.r.n. basis, Zosyn 3.375 g every 6 hours. LABORATORY DATA: Shows hemoglobin 14.9, hematocrit 41.8, WBC 22,000, platelet is 248. Sodium 147, potassium 2.9, chloride 112, bicarbonate 22, BUN 16, creatinine 0.7, glucose 116. Calcium is 8.5, phosphorus 3.8, magnesium 2. AST 20, ALT 32, alkaline phosphatase is 38, albumin 4.2. Microbiology: Sputum culture has some gram-negative yves; otherwise unremarkable. Had an echocardiogram done, which shows right ventricular systolic pressure is 42. Left ventricular diastolic function is normal. IMPRESSION AND PLAN: Heroin and benzodiazepine overuse, there may be a component of chronic lung disease, status post hemoptysis, pulmonary edema, high risk for drug withdrawal. Pulmonary point of view, doing okay. Continue bronchodilator. Keep head at 45 degrees. He has gram-negative yves in the sputum. Continue antibiotics. Heroin withdrawal precautions. Continue nicotine patch. We will order PA and lateral chest x-ray to show the stability of infiltrate. Fall precaution. Will benefit from detox. Thank you and we will follow with you. Keyana Villalpando MD
--- NOTE | 2017-07-14 04:00 | CON ---
DATE:IDENTIFYING INFORMATION: The patient is a 21-year-old single white male with a history of heroin abuse who had inadvertently overdosed on heroin and fentanyl and an unknown substance. He had been seen earlier and started on methadone but the patient is hesitant to take this, having had adverse reactions to this previously. He is requesting opportunity to go on buprenorphine. HISTORY OF PRESENT ILLNESS: The patient who had Monday night taken heroin that was apparently laced with fentanyl and an unknown substance that led to his undergoing hemoptysis that concerned he and his mother. Upon waking up from drug-induced state, he took another bag of heroin and became obtunded leading to his hospitalization here. The patient is a [place]. He is a high school graduate who presently works for the [employer]. He has had a substance abuse problem for approximately 8 years since early in his high school career. This started with opioid analgesics but for the past 4 years it has been heroin now up to 30 bags daily by snorting (never intravenously according to the patient). This has led to his being in at least four rehabilitations, three in [place] and one most recently in [facility]. Earlier in his life, he also was treated for an attention deficit and anxiety disorder and was put on what sounds like Adderall for a period of time; whose efficacy is uncertain. The patient denies any legal problems. He resides in an apartment in his parents' home in [place]. His father age 70, is a retired union worker. His mother age 59, is a nurse. She has had some pulmonary problems of an undefined but concerning nature. He indicates that his parents have been for along time (he cannot tell me the amount of years), but they do not get along; with these somewhat been less than complementary in describing his father's contribution to this ongoing conflict. His parents have four sons of which he is youngest. The others reportedly do not have a substance abuse or psychiatric history. The patient himself stated that he has had several girlfriends, most recently he broke up with a girlfriend. He was with for approximately two and half years at a time when she had a miscarriage in her which led to conflict with him. He does not to be unduly upset over this. The patient indicates that his health is okay. He is presently alert, oriented, seems pleased with the opportunity to go on Suboxone. He denied suicidality or homicidality and indeed indicated that he has never intentionally tried to kill himself. He denied psychotic ideation. I have reviewed his chart and have discussed his situation with nursing. The plan will be to stop the patient's methadone, wait till he is in a state of some withdrawal (not necessarily severe; the patient will be the acting manager of his state of withdrawal). At which time, he will be started on a fluctuating dose of Suboxone based on his need (with a protocol to be provided and enclosed in the chart). I have written a prescription for fifty 2 mg tabs of Suboxone. The patient will follow up upon stabilization here in my office. Should he undergo some of the withdrawal side effects precipitated by Suboxone (which has some degree of probability given the fact that he has been taking 30 bags daily of heroin) that he can be treated symptomatically for muscle or bone aches and pains with Motrin or naproxen, nausea with Compazine or Tigan, diarrhea with Lomotil. We will continue to monitor with you. Thank you for this consultation. Mj Thomas MD/ PhD
[2017-07-14] MEDS: Piperacillin/Tazobact 3.375 gm 100 ML IVPB SCH (05:01)
[2017-07-14 07:30] LABS: BASO # 0.01 K/mm3 (0.0-2.0); BASO % 0.1 % (0.0-3.0); EOS % 0.3 % (1.5-5.0); GRAN # 9.52 (1.4-6.5); GRAN % 61.2 % (50.0-68.0); LYMPH # 4.3 (1.2-3.4); LYMPH % 27.6 % (22.0-35.0); MEAN CELL VOLUME 83.3 fl (80.0-105.0); MEAN CORPUSCULAR HEMOGLOBIN 28.8 pg (25.0-35.0); MEAN CORPUSCULAR HGB CONC 34.6 g/dl (31.0-37.0); MEAN PLATELET VOLUME 10.2 fl (7.0-11.0); MONO # 1.7 (0.1-0.6); MONO % 10.8 % (1.0-6.0); RBC 5.2 10^6/uL (3.5-6.1); RED CELL DISTRIBUTION WIDTH 13.1 % (11.5-14.5); WHITE BLOOD COUNT 15.5 10^3/ul (4.5-11.0)
[2017-07-14 07:51] LABS: ALB/GLOB RATIO 1.6 (1.1-1.8); ALBUMIN 4.2 g/dL (3.0-4.8); ALT/SGPT 27 U/L (7-56); AST/SGOT 14 U/L (17-59); BLOOD UREA NITROGEN 19 mg/dL (7-21); CALCIUM 9.5 mg/dL (8.4-10.5); GFR AFRICAN-AMERICAN > 60; GFR NON-AFRICAN AMERICAN > 60
[2017-07-14 09:04] VITALS: RESP 20
[2017-07-14 09:07] VITALS: BP 128/73; PULSE 65; TEMP 98.5; O2SAT 97
[2017-07-14] MEDS ORDERED: Cefpodoxime (Vantin) 200 mg Tab PO SCH (10:00)
[2017-07-14] MEDS ORDERED: SUBOXONE PO SCH (10:00)
[2017-07-14] MEDS: SUBOXONE SL SCH ×2 (11:10→13:24)
--- NOTE | 2017-07-14 12:01 | RAD ---
HISTORY: infiltrate COMPARISON: 07/11/2017 TECHNIQUE: Chest PA and lateral FINDINGS: LUNGS: There is complete resolution of the previously seen vascular congestion and bilateral infiltrates PLEURA: No significant pleural effusion identified. No pneumothorax apparent. CARDIOVASCULAR: Normal. OSSEOUS STRUCTURES: No significant abnormalities. VISUALIZED UPPER ABDOMEN: Normal. OTHER FINDINGS: None. IMPRESSION: No active disease.
--- NOTE | 2017-07-14 14:41 | PN ---
DATE: 07/14/2017 SUBJECTIVE: The patient was seen in bed, in no acute distress, room 575, bed 1. PHYSICAL EXAMINATION: VITAL SIGNS: Temperature is 98, blood pressure is 128/70, respiratory rate of 20, heart rate of 65. HEENT: Unremarkable. NECK: Supple. LUNGS: Had decreased breath sounds. HEART: Normal S1, S2. ABDOMEN: Soft, nontender. LABORATORY EXAMINATION: Reveals a white count of 15,500. Chemistries reveals the patient has a BUN of 19, creatinine of 0.8. Procalcitonin is 0.59. Toxicology is pending and is done. This reviewed. HIV is negative. AFBs, QuantiFERON is negative. The sputum has a E. coli that is pansensitive. . The blood cultures are negative. Urine cultures are negative. Mycobacterium smears are negative. The patient currently on doxycycline and Zosyn. The patient is refusing IV access. The patient is also on Solu-Medrol. EKG reveals the patient have QTC of 467 and review of the CAT scan of the chest, diffuse patchy infiltrates noted. ASSESSMENT AND PLAN: A 21-year-old male with history of heroin use, who sniffs heroin, has gastritis and obesity with body mass of index of 36, admitted with coughing and hemoptysis with sepsis with diffuse alveolar hemorrhage and Escherichia coli, pneumonia and currently refusing IV access, on p.o. doxycycline. We will add p.o. Vantin for the Escherichia coli complete therapy, 200 mg p.o. b.i.d. x 5 days and follow primary and Pulmonary doctors on resolution of the imaging and follow primary very closely. Juwan Mcdonnell MD
--- NOTE | 2017-07-14 23:12 | PN ---
DATE: 07/14/2017 PULMONARY PROGRESS NOTE REFERRING PHYSICIAN: Dr. López. SUBJECTIVE: He is being discharged home, feels better. Has some mild cough. No shortness of breath, no chest pain, no nausea, no vomiting, no diarrhea, no leg pain, no leg swelling. Seen by psychiatrist, placed on Suboxone for withdrawal, also recommended Motrin p.r.n. for muscle pain and Imodium for diarrhea. OBJECTIVE: GENERAL: In no acute distress. VITAL SIGNS: Temperature is 98, heart rate is 60, respiratory rate is 20, blood pressure 128/73, pulse ox 97% on room air. HEENT: Moist mucous membrane. Crowded airway. NECK: Supple. No JVD. LUNGS: Has fair airflow with few rhonchi. HEART: S1 and S2. ABDOMEN: Soft, nontender. No organomegaly. EXTREMITIES: No edema. NEUROLOGIC: Awake and alert, follows simple command. MEDICATIONS: Reviewed and noted. Vistaril p.r.n. is being given. Also placed on Vantin 200 mg twice a day. He is on Nicoderm patch and Suboxone p.o. is given. LABORATORY DATA: Shows hemoglobin 15.4, hematocrit 43.4, WBC 15,000, platelet count is 240. Sodium 146, potassium 4.1, chloride 108, bicarbonate 28, BUN 19, creatinine 0.8, glucose is 101, calcium 9.5, phosphorus is 3.6, AST 14, ALT 27, alk phos is 34, albumin is 4.2. Sputum culture had E. coli. Chest x-ray shows resolved infiltrate. IMPRESSION AND PLAN: Heroin and benzodiazepine overdose with hemoptysis, pulmonary edema. Pulmonary point of view, doing well. Cleared pulmonary edema. Doing okay. Patient could be discharged home. I have a long discussion with the patient in the presence of patient's father about his further drug use and risk of and . He expressed understanding, will be using Suboxone and will follow up the psychiatrist outpatient and should have a PFT to assess lung function. Keyana Villalpando MD
--- NOTE | 2017-07-15 14:52 | DS ---
HISTORY OF PRESENT ILLNESS: The patient is a 21-year-old who was found unresponsive by his mother. She did [id number] resuscitated and called ambulance and was brought to the emergency room. He recently broke up with girl friend and overdosed for heroin and also used some fentanyl. Patient was having hemoptysis and hematemesis so he was in ICU for two days, had withdrawal symptom, was initially given methadone. Dr. Thomas was consulted, was started him on Suboxone. Patient is doing well. Hemoptysis has subsided. He has been anxious to go home. PHYSICAL EXAMINATION: GENERAL: Today he is awake, alert, oriented, communicative. VITAL SIGNS: He is afebrile, pulse 65, respirations 20, blood pressure 128/73. LUNGS: Bilateral good airflow. No rhonchi or crackle. HEART: S1, S2 audible. ABDOMEN: Soft, nontender. No rebound. No guarding. NEUROLOGICAL: He is awake, alert, oriented, communicative, ambulatory. LABORATORY EXAM: WBC is 15, hemoglobin 15, hematocrit 43, platelets 240. Chemistry: Sodium 146, potassium 4.1, chloride 108, CO2 of 25, BUN 19, creatinine 0.8. Blood sugar of 101. Urine drug screen positive for opiates. cANCA and pANCA is negative. Myeloperoxidase antibody negative. ASSESSMENT: 1. Heroin overdose. 2. Multifocal probably aspiration pneumonia. 3. Asthmatic bronchitis. PLAN: Patient is being discharged home on Suboxone. He was given one week of Vantin 200 twice a day, doxycycline 100 twice a day, Medrol Dosepak and he will be using nebulizer treatment. He is being discharged home today. He will follow up with his PMD. Trung López MD
[2017-07-16 01:10] LABS: ANCA SCREEN NEGATIVE (NEGATIVE)
== END 2017-07-14 14:27 | disposition home or self-care (01) | DRG 917 ==
LOC: ED 10:28 → ERH 12:58 → ICU 15:04 → 5RSO 07-13 14:19
PROVIDERS: ADMIT Internal Medicine; ATTEND Internal Medicine
DX: T40.1X1A Poisoning by heroin, accidental (unintentional), initial encounter (principal); J69.0 Pneumonitis due to inhalation of food and vomit; F11.23 Opioid dependence with withdrawal; T42.4X1A Poisoning by benzodiazepines, accidental (unintentional), initial encounter; J70.4 Drug-induced interstitial lung disorders, unspecified; J45.909 Unspecified asthma, uncomplicated; K29.70 Gastritis, unspecified, without bleeding; G25.81 Restless legs syndrome; R09.02 Hypoxemia; E66.9 Obesity, unspecified; Z68.36 Body mass index [BMI] 36.0-36.9, adult